=== PATIENT | female | born 1955 | race Caucasian/White ===

== ENCOUNTER 2016-10-18 08:09 | Emergency (ER) | payer OTHER ==
--- NOTE | 2016-10-18 08:37 | EDPHY ---
H & P Stated Complaint: generalized weakness HPI/ROS: Chief Complaint: Weakness, numbness, tingling HPI: 60-year-old woman with a history of hypothyroidism presenting complaining of symptoms of lack of coordination, numbness and tingling in her wrists and feet. Symptoms began yesterday but she woke this morning and were significantly worse. Patient states she has been having a hard time walking up the stairs on and feels generally uncoordinated. She has a recent diagnosis of a sinus infection several days ago is been on 5 days of amoxicillin. Denies any headaches. No nausea or vomiting. No chest pain or shortness of breath. She recently from a long hiking trip and [facility] on the of this month. No cough or shortness of breath. Does not have a history of the same. Has been taking her Synthroid but is been off her calcium and vitamin D since her trip. No urinary urgency or frequency. Patient states that she did have a difficult time dressing and lifting up her coffee cup this morning and feels that she cannot walk in a straight line as if she were intoxicated. ROS: 10 point Review of Systems is negative except as noted in the HPI. PMH: Hypothyroidism Medications: Synthroid Allergies: Sulfa Social History: No smoking, rare alcohol, no recreational drug use Family History: Unknown as she is adopted Physical Exam: Gen: Awake, Alert, No Distress HEENT: Nose: no rhinorrhea Eyes: PERRLA, EOMI Mouth: Moist mucosa Neck: Supple, no JVD Chest: nontender, lungs clear to auscultation Heart: S1, S2 normal, no murmur Abd: Soft, non-tender, no guarding Back: no CVA tenderness, no midline tenderness Ext: no edema, non-tender Skin: no rash Neuro: CN II-XII intact, Sensation grossly intact, Strength 5/5 in bilateral upper and lower extremities, she has not abnormal finger to nose bilaterally but has normal heel-espinosa. She has a negative Romberg. She does have a mildly ataxic gait and is unable to tandem walk. Sensation is intact to dull and pinprick on bilateral upper and lower extremities. - Personal History Current Tetanus/Diphtheria Vaccine: Yes Current Tetanus Diphtheria and Acellular Pertussis (TDAP): Yes Tetanus Vaccine Date: last 10 years - Medical/Surgical History Hx Asthma: No Hx Chronic Respiratory Disease: No Hx Diabetes: No Hx Cardiac Disease: No Hx Renal Disease: No Hx Cirrhosis: No Hx Alcoholism: No Hx HIV/AIDS: No Hx Splenectomy or Spleen Trauma: No Other PMH: hypothroid- on meds - Social History Smoking Status: Never smoked Constitutional: Initial Vital Signs Temperature (C) 36.5 C 10/18/16 08:18 Heart Rate 79 10/18/16 08:18 Respiratory Rate 18 10/18/16 08:18 Blood Pressure 140/71 H 10/18/16 08:18 O2 Sat (%) 94 10/18/16 08:18 O2 Delivery Mode Room Air Allergies/Adverse Reactions: Sulfa (Sulfonamide Antibiotics) Allergy (Verified 10/18/16 08:21) Home Medications: Medication Instructions Recorded Levothyroxine 10/18/16 Levothyroxine [Synthroid 25 mcg 25 mcg PO DAILY06 #30 tab 10/18/16 (*)] Medical Decision Making - Diagnostics Imaging Results: Imaging Impressions Head CT 10/18/16 08:33 Impression: There is no acute intracranial abnormality identified on this unenhanced CT evaluation. If there is further clinical concern regarding the patient's symptoms, MR imaging is suggested, if not otherwise contraindicated. Findings were discussed with Jordan Delcid MD at 9:02, on 10/18/2016. Imaging: Discussed imaging studies w/ call center support consultant Radiologist ED Course/Re-evaluation: 60-year-old woman with vague neurologic symptoms with numbness and tingling but normal sensation. She does have some ataxia here. Does not have a history of the same. Differential diagnosis includes metabolic disorder, acute neurologic injury, multiple sclerosis. Will obtain blood work and CT scan of the brain and possibly discussed with Neurology. CT scan results are noted and negative. Patient has an elevated TSH consistent with hypothyroidism otherwise laboratory evaluations are normal. Symptoms certainly could be secondary to hypothyroidism. I have discussed with Dr. Hart, neurology. He is recommending outpatient workup. He will see the patient in his office this week. Patient will need an outpatient MRI but he does not feel emergent MRI is indicated at this time. I have also discussed with on-call doctor for Dr. Peters, the patient's PCP. They will follow up on the TSH, Synthroid dosing and outpatient referrals and MRIs. Patient has been cautioned to return to the emergency department for worsening symptoms, in particular she should go to [facility] where she can have an MRI done at that time. I do not think she has any symptoms suggestive of acute process she needs further evaluation at this time as confirmed by Dr. Hart. The patient is currently taking 100 mcg of Synthroid daily. I will increase this to 112.5 and have her follow up with PCP. - Data Points Laboratory Results: Laboratory Results 10/18/16 08:40 10/18/16 08:40 10/18/16 10/18/16 08:40 08:40 WBC 6.11 10^3/uL 10^3/uL (3.80-9.50) RBC 4.85 10^6/uL 10^6/uL (4.18-5.33) Hgb 15.4 g/dL g/dL (12.6-16.3) Hct 45.6 % % (38.0-47.0) MCV 94.0 fL fL (81.5-99.8) MCH 31.8 pg pg (27.9-34.1) MCHC 33.8 g/dL g/dL (32.4-36.7) RDW 12.7 % % (11.5-15.2) Plt Count 294 10^3/uL 10^3/uL (150-400) MPV 9.4 fL fL (8.7-11.7) Neut % (Auto) 42.5 % % (39.3-74.2) Lymph % (Auto) 43.0 % % (15.0-45.0) [place] % (Auto) 8.7 % % (4.5-13.0) Eos % (Auto) 4.6 % % (0.6-7.6) Baso % (Auto) 0.7 % % (0.3-1.7) Nucleat RBC Rel Count 0.0 % % (0.0-0.2) Absolute Neuts (auto) 2.60 10^3/uL 10^3/uL (1.70-6.50) Absolute Lymphs (auto) 2.63 10^3/uL 10^3/uL (1.00-3.00) Absolute Monos (auto) 0.53 10^3/uL 10^3/uL (0.30-0.80) Absolute Eos (auto) 0.28 10^3/uL 10^3/uL (0.03-0.40) Absolute Basos (auto) 0.04 10^3/uL 10^3/uL (0.02-0.10) Absolute Nucleated RBC 0.00 10^3/uL 10^3/uL (0-0.01) Immature Gran % 0.5 % % (0.0-1.1) Immature Gran # 0.03 10^3/uL 10^3/uL (0.00-0.10) Sodium 143 mEq/L mEq/L (134-144) Potassium 4.0 mEq/L mEq/L (3.5-5.2) Chloride 105 mEq/L mEq/L (97-110) Carbon Dioxide 24 mEq/l mEq/l (22-31) Anion Gap 14 mEq/L mEq/L (8-16) BUN 16 mg/dL mg/dL (7-23) Creatinine 0.8 mg/dL mg/dL (0.6-1.0) Estimated GFR > 60 Glucose 106 mg/dL H mg/dL (70-100) Calcium 9.3 mg/dL mg/dL (8.5-10.4) Total Bilirubin 0.5 mg/dL mg/dL (0.1-1.4) Conjugated Bilirubin 0.3 mg/dL mg/dL (0.0-0.5) Unconjugated Bilirubin 0.2 mg/dL mg/dL (0.0-1.1) AST 19 IU/L IU/L (14-46) ALT 34 IU/L IU/L (9-52) Alkaline Phosphatase 61 IU/L IU/L (38-126) Total Protein 7.0 g/dL g/dL (6.3-8.2) Albumin 4.2 g/dL g/dL (3.5-5.0) Lipase 93.0 IU/L IU/L (23-300) TSH 9.120 uIU/mL H uIU/mL (0.465-4.680) Departure - Departure Disposition: Home, Routine, Self-Care Clinical Impression: Weakness, Hypothyroidism Condition: Good Instructions: Weakness (ED), Hypothyroidism (ED) Additional Instructions: Return to the emergency department immediately for worsening weakness, difficulty walking, fevers, chills, or any other concerns. Follow up with Dr. Peters in 1-2 days. Follow up with , Neurology, in 3-4 days. Call for next available appointment. Add the 25 mcg of Synthroid to your current 100 mcg to take 125 mcg daily and follow up with her primary care physician for recheck of your TSH. Referrals: Peg Peters MD [Primary Care Provider] - As per Instructions Prescriptions: Levothyroxine [Synthroid 25 mcg (*)] 25 mcg PO DAILY06 #30 tab
[2016-10-18 08:49] LABS: % IMMATURE GRANULYOCYTES 0.5 % (0.0-1.1); ABSOLUTE IMMATURE GRANULOCYTES 0.03 10^3/uL (0.00-0.10); ADD DIFF? NO; ADD MORPH? NO; ADD SCAN? NO; ATYPICAL LYMPHOCYTE FLAG 60 (0-99); FRAGMENT RBC FLAG 0 (0-99); HEMATOCRIT 45.6 % (38.0-47.0); HEMOGLOBIN 15.4 g/dL (12.6-16.3); LEFT SHIFT FLG 0 (0-99); LIPEMIA HEMOLYSIS FLAG 90 (0-99); MEAN CELL HEMOGLOBIN 31.8 pg (27.9-34.1); MEAN CELL HEMOGLOBIN CONCENTR. 33.8 g/dL (32.4-36.7); MEAN PLATELET VOLUME 9.4 fL (8.7-11.7); PLATELET CLUMPS FLAG 0 (0-99); PLATELET COUNT 294 10^3/uL (150-400); RED BLOOD CELL COUNT 4.85 10^6/uL (4.18-5.33); RED CELL DISTRIBUTION WIDTH 12.7 % (11.5-15.2)
[2016-10-18 09:04] LABS: CHLORIDE 105 mEq/L (97-110); SODIUM 143 mEq/L (134-144)
[2016-10-18 09:27] LABS: ALANINE AMINOTRANSFERASE 34 IU/L (9-52); ALBUMIN 4.2 g/dL (3.5-5.0); ALKALINE PHOSPHATASE 61 IU/L (38-126); ANION GAP 14 mEq/L (8-16); ASPARTATE AMINOTRANSFERASE 19 IU/L (14-46); BILIRUBIN,TOTAL 0.5 mg/dL (0.1-1.4); BILIRUBIN-CONJUGATED 0.3 mg/dL (0.0-0.5); BILIRUBIN-UNCONJUGATED 0.2 mg/dL (0.0-1.1); CALCIUM 9.3 mg/dL (8.5-10.4); CARBON DIOXIDE 24 mEq/l (22-31); CREATININE 0.8 mg/dL (0.6-1.0); GLOMERULAR FILTRATION RATE > 60; GLUCOSE 106 mg/dL (70-100)
[2016-10-18 10:48] VITALS: BP 114/75; PULSE 78; RESP 16; TEMP 98.4; O2SAT 95
== END 2016-10-18 11:03 | disposition home or self-care (01) ==
LOC: CED 08:09
DX: R53.1 Weakness (principal); E03.9 Hypothyroidism, unspecified
CPT/HCPCS: 70450-PO; 80048-PO; 80076-PO; 83690-PO; 84443-PO; 85025-PO